=== PATIENT | female | born 1955 | race Caucasian/White ===

== ENCOUNTER → 2021-06-17 11:15 | Outpatient (CLI) | payer MEDICARE, OTHER, SELFPAY ==
[2021-06-17 13:44] LABS: COVID19 -Nasal RAPID Negative (Negative)
== END ==
PROVIDERS: PCP Internal Medicine Geriatric Medicine; Referring Provider Nurse Practitioner Family; Visit Provider Nurse Practitioner Family
DX: Z20.822 Contact with and (suspected) exposure to COVID-19 (principal)
CPT/HCPCS: 87635

== ENCOUNTER → 2021-06-17 11:24 | Outpatient (CLI) | payer MEDICARE, OTHER, SELFPAY | PROVIDERS: PCP Internal Medicine Geriatric Medicine; Referring Provider Podiatrist; Visit Provider Podiatrist | DX: Z01.818 Encounter for other preprocedural examination (principal); Z20.822 Contact with and (suspected) exposure to COVID-19 | CPT/HCPCS: 87635; 93005; C9803 ==

== ENCOUNTER 2021-06-19 09:06 | Day surgery (SDC) | payer MEDICARE, OTHER, SELFPAY ==
[2021-06-19] VITALS (7 sets, daily range): BP systolic 117–165; BP diastolic 63–93; PULSE 80–92; RESP 12–16; TEMP 36.2–36.6; O2SAT 92–99; BMI 21.4
[2021-06-19] MEDS: ACETAMINOPHEN 325 MG TABLET 975 MG PO (09:42)
[2021-06-19] MEDS: GABAPENTIN 300 MG CAPSULE PO (09:42)
[2021-06-19] MEDS: LACTATED RINGERS 1,000 ML 42 ML IV ×2 (09:42→12:31)
--- NOTE | 2021-06-19 11:27 | PM.PREOP ---
Pre-operative Note COVID-19 COVID-19 status: Negative Result date/Date tested (Pos, Neg/Pending): 06/17/21 Interval Note History & Physical reviewed/Exam performed by Physician: Yes Changes to H&P: No
--- NOTE | 2021-06-19 11:28 | PM.OP.1 ---
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 Left first metatarsocuneiform arthrodesis 2. Left bunionectomy 3. Left hallux proximal phalangeal osteotomy Same procedure as scheduled: Yes Indications: Left great toe painful bunion. Conservative measures have failed to alleviate her pain and she wished to have surgical intervention at this time. We spoke of the risks, potential complications, as well as expected outcomes. Consent was signed, no contraindications to the procedures at this time. Surgeon: Miesha Zeng Click Yes if Unassisted: Yes Anesthesia Type: General Operative Notes Closure Type: primary Specimen(s): none sent Prosthetic devices, grafts, tissues, transplants, or devices: [place] Lapidus plate, 4.0 cannulated screw (1), 3.5 (3) locking and (1) non-locking screws. Estimated Blood Loss (mL): 30 Blood products transfused: none Tourniquet time (min): 88 Procedure in detail: The patient was brought to the operating room and placed on the operating table in the supine position. The tourniquet was placed about the left thigh. Well padded, appropriately aligned. After induction of general anesthesia the left foot and ankle were prepped and draped in the usual aseptic manner. The tourniquet was inflated. Incision was made over the left 1st metatarsal cuneiform joint extending to the 1st metatarsophalangeal joint. The incision was deepened through subcutaneous tissues being careful to identify and retract all vital neurovascular structures. All bleeders were cauterized and ligated as necessary. A capsulotomy was performed to the 1st MTPJ exposing the enlarged medial eminence. The saw was used to resect the medial eminence. A rasp was used to reduce the sharp edges of the bone. Attention was then directed to the 1st metatarsocuneiform joint which was entered. The joint was taken down and a saw was used to resect the base of the 1st metatarsal and the distal leading edge of the medial cuneiform. This was done at a slight angle on the medial cuneiform to allow for closure of the intermetatarsal angle. It was found that the edge of the 1st metatarsal base laterally was too prominent to allow for full closure so the proximal lateral edge of the 1st metatarsal was also resected. The area was then able to be closed and the alignment was good. A 0.062 k-wire was used to fenestrate either side of the former MC joint and fish scaling was also used. The area was irrigated with copious amounts normal sterile saline. With the aid of C-arm the guidewire was placed for temporary fixation through the 1st metatarsocuneiform joint. I was able to translate the 1st metatarsal slightly medially and plantarly to allow for better correction. It was noted to make sure that there was not a significant amount of plantar flexion distally. Next the plate was trialed and using the guide the 4.0 cannulated screw was placed from distal lateral to proximal medial. The fusion site showed good compression and closure. The plate was then attached with the corresponding screws in the normal AO technique. This was reviewed on C-arm and noted to be strong and in appropriate alignment. Once this was loaded it would appear that there was still enough abduction at the level of the hallux that I proceded with a phalangeal osteotomy The incision was carried distally into the proximal phalanx of the hallux. Once the central aspect and base were able to be viewed, a saw was used to make 2 cuts 1 slightly distal and 1 slightly proximal at an angle allowing for a wedge to be removed with the base medially. The lateral cortex was kept intact. This was then gently brought down into closure medially. The area was irrigated with copious amounts of normal sterile saline. Following appropriate technique, after the area was closed, a drill was placed on either side of the osteotomy and a 10 x 10 staple was then placed. A tamp was used to verify placement. This closed the osteotomy and verified under mini C-arm showing appropriate closure strength and alignment. Once again after irrigation the medial 1st MTP capsule was repaired in alignment with Vicryl. The tourniquet was deflated and a prompt hyperemic response was seen in the foot. Deep and subcutaneous closure was closed performed with Vicryl and nylon to the skin. The foot was dressed with a lightly compressive sterile dressing and splint in alignment. She was then placed in a postoperative shoe and transferred to PACU with vital signs stable. Complications: none Post-operative Condition: stable Disposition: PACU Plan for aftercare: Following a period of postoperative monitoring the patient be discharged home on written and oral postoperative instructions including keeping the dressing dry and intact, no weight bearing to the foot, icing and elevating the foot when seated at home. DVT prevention techniques have been reviewed. Her first Lovenox injection is to be performed tomorrow morning. X-rays to be taken approximately s/p wk 4.
[2021-06-19] MEDS: OXYCODONE IR 5 MG TABLET 10 MG PO ×2 (11:52→14:51)
[2021-06-19] MEDS: CEFAZOLIN 1 GM VIAL 2 GM IV (12:01)
--- NOTE | 2021-06-19 12:25 | SUR.OPER ---
Supine on padded OR bed, head on pillow, arms secured on padded arm boards at <90 degrees abduction, legs uncrossed, safety belt at waist, tape over blanket over lower right leg, left leg draped free with gel bump under left thigh.
[2021-06-19] MEDS: BUPIVACAINE 0.5% (PF) VIAL 30 ML INJ (12:31)
== END 2021-06-19 15:35 | disposition home or self-care (01) ==
LOC: OR 09:08
PROVIDERS: PCP Internal Medicine Geriatric Medicine; Referring Provider Internal Medicine Geriatric Medicine; Visit Provider Podiatrist
PROC: 0QBP0ZZ Excision of Left Metatarsal, Open Approach (ICD-10-PCS; CPT 28292; principal; 2021-06-19 10:45)
DX: M20.12 Hallux valgus (acquired), left foot (principal); G89.4 Chronic pain syndrome; R09.89 Other specified symptoms and signs involving the circulatory and respiratory systems; F17.210 Nicotine dependence, cigarettes, uncomplicated; M79.7 Fibromyalgia; I10 Essential (primary) hypertension; M81.0 Age-related osteoporosis without current pathological fracture
CPT/HCPCS: 28297; 28298; J0360; J0690; J1100; J1885; J2250; J2405; J2704